=== PATIENT | male | born 1995 | race Caucasian/White ===

== ENCOUNTER 2019-11-29 18:23 | Emergency (ER) | payer OTHER ==
[~2019-11-29] VITALS: Ht 172.7 cm; Wt 81.7 kg
[2019-11-29] MEDS ORDERED: DORYX MPC120 MG PO (18:38)
[2019-11-29] MEDS ORDERED: CEFDINIR300 MG PO (19:45)
[2019-11-29] MEDS ORDERED: PREDNISONE 10 M10 M1 PO (19:45)
[2019-11-29 19:53] VITALS: BP 116/61
== END 2019-11-29 19:53 | disposition home or self-care (01) ==
LOC: M.ERS 18:23
DX: J06.9 Acute upper respiratory infection, unspecified (principal); R91.8 Other nonspecific abnormal finding of lung field; Z20.828 Contact with and (suspected) exposure to other viral communicable diseases